=== PATIENT | male | born 1940 | race Caucasian/White ===

== ENCOUNTER 2018-08-22 09:42 | Inpatient (IN) | payer OTHER ==
[~2018-08-22] VITALS: Ht 165.1 cm; Wt 73.2 kg
[2018-08-22] MEDS ORDERED: ALBUTEROL 0.083% (NEB) 2.5 MG/3 ML AMP NEB STA (09:56)
[2018-08-22] MEDS ORDERED: IPRATROPIUM (NEB) 0.5 MG/2.5 ML AMP NEB STA (09:56)
[2018-08-22] MEDS ORDERED: GLUCAGON 1 MG INJ IV STA (10:01)
--- NOTE | 2018-08-22 10:35 | ERD ---
ER Documentation Chief Complaint Chief Complaint PtVandana LOPEZ RA with c/o dizziness. Denies chest pain HPI This is a 78-year-old male who presents to the emergency department brought in by EMS after he developed a sudden onset of dizziness about an hour prior to arrival. The patient indicated he awoke this morning and taken his prescribed medication which is 50 mg of metoprolol. Roughly 30 minutes after he felt very lightheaded and dizzy. He states he believes he took his normal dose. He also takes hydrochlorothiazide benazepril amlodipine metformin and finasteride. The patient denied any chest pain. He denied a headache. He denied any changes in vision. He states he felt lightheaded and dizzy and felt as though he was going to pass out but did not have a complete transient loss of consciousness. EMS arrived and indicated that the patient was bradycardic. His primary care physician is Dr. Feldman. ROS All systems reviewed and are negative except as per history of present illness. Medications Home Meds Reported Medications Finasteride* (Finasteride*) 5 Mg Tablet, 5 MG PO DAILY, TAB 08/22/18 Metformin Hcl* (Metformin Hcl*) 1,000 Mg Tablet, 1000 MG PO WITH BREAKFAST, #30 TAB 08/22/18 Amlodipine Besylate* (Amlodipine Besylate*) 10 Mg Tablet, 10 MG PO DAILY, #30 TAB 08/22/18 Benazepril Hcl* (Benazepril Hcl*) 40 Mg Tablet, 40 MG PO DAILY, #30 TAB 08/22/18 Clopidogrel Bisulfate* (Clopidogrel Bisulfate*) 75 Mg Tablet, 75 MG PO DAILY, #30 TAB 08/22/18 Hydrochlorothiazide* (Hydrochlorothiazide*) 12.5 Mg Tablet, 12.5 MG PO DAILY, #30 TAB 08/22/18 Metoprolol Tartrate* (Lopressor*) 50 Mg Tab, 50 MG PO BID, #60 TAB 08/22/18 Allergies Allergies: Coded Allergies: No Known Allergy (Unverified , 08/22/18) PMhx/Soc Hx Neurological Disorder: No Hx Respiratory Disorders: No Hx Cardiac Disorders: Yes (HTN) Hx Psychiatric Problems: No Hx Miscellaneous Medical Probl: Yes (BPH) Hx Alcohol Use: No Hx Substance Use: No Hx Tobacco Use: No Smoking Status: Never smoker Physical Exam Vitals Vital Signs Date Temp Pulse Resp B/P (MAP) Pulse Ox O2 O2 Flow FiO2 Time Delivery Rate 08/22/18 51 18 181/76 100 Room Air 12:44 (111) 08/22/18 53 18 206/71 100 Room Air 11:57 (116) 08/22/18 43 18 100 21 10:14 08/22/18 98.2 45 18 200/68 98 09:56 (112) Physical Exam Constitutional:Well-developed. Well-nourished. HEENT:Normocephalic. Atraumatic.Pupils were equal round reactive to light. Moist mucous membranes.No tonsillar exudates. Neck: No nuchal rigidity. No lymphadenopathy. No posterior cervical spine tenderness or step-offs. Respiratory: Not using accessory muscles of respiration.Lungs were clear to auscultation bilaterally. No rhonchi. No rales. No wheezing. Cardiovascular: Bradycardic.No murmurs. No rubs were appreciated.S1, S2 normal. Distal pulses are palpable 2+ bilaterally. GI: Abdomen was soft. Nontender. Non Distended. No pulsatile abdominal masses or bruits. No rebound. No guarding. Bowel sounds were present and normal. Muscle skeletal: Full range of motion of both the upper and lower extremities bilaterally.Normal muscle tone.No assymetrical calf tenderness or swelling. Skin: No petechia, no purpura. No lesions on the palms or the soles of the feet. No maculopapular rash. NEURO: Patient was alert, awake, orientated x3.No facial droop. Gait observed and normal with no ataxia.Speech had regular rate and rhythm. No focal neurological deficits. Result Diagram: 08/22/18 1002 08/22/18 1002 Results 24 hrs Laboratory Tests Test 08/22/18 10:02 08/22/18 10:42 08/22/18 11:27 White Blood Count 8.8 10^3/ul Red Blood Count 4.02 10^6/ul Hemoglobin 12.2 g/dl Hematocrit 36.2 % Mean Corpuscular Volume 90.0 fl Mean Corpuscular Hemoglobin 30.3 pg Mean Corpuscular 33.7 g/dl Hemoglobin Concent Red Cell Distribution Width 13.6 % Platelet Count 179 10^3/UL Mean Platelet Volume 10.7 fl Immature Granulocytes % 0.600 % Neutrophils % 63.3 % Lymphocytes % 27.0 % Monocytes % 7.7 % Eosinophils % 0.9 % Basophils % 0.5 % Nucleated Red Blood Cells % 0.0 /100WBC Immature Granulocytes # 0.050 10^3/ul Neutrophils # 5.6 10^3/ul Lymphocytes # 2.4 10^3/ul Monocytes # 0.7 10^3/ul Eosinophils # 0.1 10^3/ul Basophils # 0.0 10^3/ul Nucleated Red Blood Cells # 0.0 10^3/ul Prothrombin Time 13.2 Sec Prothrombin Time Ratio 1.0 INR International Normalized Ratio 0.99 Activated Partial Thromboplast 31.9 Sec Time Sodium Level 142 mmol/L Potassium Level 3.5 mmol/L Chloride Level 101 mmol/L Carbon Dioxide Level 28 mmol/L Anion Gap 13 Blood Urea Nitrogen 14 mg/dl Creatinine 1.05 mg/dl Est Glomerular Filtrat Rate mL/min mL/min Glucose Level 188 mg/dl Calcium Level 8.3 mg/dl Total Bilirubin 0.2 mg/dl Direct Bilirubin 0.00 mg/dl Indirect Bilirubin 0.2 mg/dl Aspartate Amino Transf (AST/SGOT) 15 IU/L Alanine 14 IU/L Aminotransferase (ALT/SGPT) Alkaline Phosphatase 51 IU/L Creatine Kinase 22 IU/L Creatine Kinase Index 2.1 Creatinine Kinase MB (Mass) 0.47 ng/ml Troponin I 0.013 ng/ml B-Type Natriuretic Peptide 1260 PG/ML Total Protein 6.2 g/dl Albumin 3.3 g/dl Globulin 2.90 g/dl Albumin/Globulin Ratio 1.13 Lipase 26 U/L Bedside Glucose 178 mg/dL 182 mg/dL Current Medications Medications Dose Sig/Renetta Start Time Status Last (Trade) Ordered Route PRN Stop Time Admin Dose Reason Admin Albuterol 5 mg ONCE STAT 08/22/18 DC 08/22/18 (Proventil NEB 09:56 10:14 0.083% (Neb)) 08/22/18 09:59 Ipratropium 0.5 mg ONCE STAT 08/22/18 DC 08/22/18 [place] NEB 09:56 10:14 (Atrovent 08/22/18 09:59 0.02% (Neb)) Glucagon 5 mg ONCE STAT 08/22/18 DC 08/22/18 (Glucagen) IV 10:01 11:11 08/22/18 10:03 Ondansetron 8 mg ONCE STAT 08/22/18 DC 08/22/18 HCl (Zofran IV 10:58 11:04 Inj) 08/22/18 10:59 Nicardipine 30 mg STK-MED 08/22/18 DC HCl ONCE .ROUTE 11:34 (Cardene) 08/22/18 11:35 Nicardipine 30 mg ONCE ONCE 08/22/18 DC 08/22/18 HCl PO 12:00 11:50 (Cardene) 08/22/18 12:01 Procedures/[facility] [place] This patient was seen and evaluated by myself. The patient presented to the emergency department complaining of dizziness. My differential diagnosis included but was not limited to hypovolemia, myocardial infarction, pulmonary embolism, hypoglycemia, hypoxia, anemia, vasovagal episode, hypothyroidism, anxiety, peripheral or central vertigo. The patient was placed on a bus monitor, continuous pulse oximetry and IV access established by nursing staff. Patient was given a liter bolus of 0.9 normal saline. The patient was now complaining of mild dyspnea and on physical exam had a very slight wheeze in the left lower lung base. Given that this was new onset wheezing I did feel is necessary to obtain a chest radiograph. The patient received nebulizer treatment of albuterol and Atrovent. Chest radiograph reviewed by myself showed cardiomegaly but no pulmonary vascular congestion. The patient had no leukocytosis or signs of infectious process such as sepsis that could be creating the patient's bradycardia. 12 Lead EKG tracing ordered and reviewed by myself showed: Sinus bradycardia 47 bpm and no arrhythmia. W[place] interval normal. QRS duration normal. No ST segment elevation No ST segment depression. No changes consistent with acute ischemia. Given that the patient was still symptomatic with pacer pads placed onto the patient and ACLS protocol followed, I did administer a bolus of 5 mg intravenously over 1 minute of glucagon to rule out the potential beta-collette toxicity. The patient was also given Zofran prophylactically. The patient had significant improvement of his bradycardia his heart rate is now 62. Given that the patient was still complaining of dizziness I do feel is necessary to obtain a CT scan of the patient's head. There is no signs of intercerebral hemorrhage mass-effect or midline shift. I did feel that the patient was stable for transfer. I spoke with Dr. [facility]av[facility] who gave authorization to admit to the panel physician for observation. Dr. Merrill will be the admitting physician Departure Diagnosis: Primary Impression: Dizziness Additional Impression: Symptomatic bradycardia Condition: Serious GEORGI COWAN MD Aug 22, 2018 10:35
[2018-08-22] MEDS ORDERED: ONDANSETRON 4 MG INJ IV STA (10:58)
[2018-08-22] MEDS ORDERED: METO-429 PO (11:05)
[2018-08-22] MEDS ORDERED: HYDR12.58 PO (11:06)
[2018-08-22] MEDS ORDERED: CLOP75TA19 PO (11:06)
[2018-08-22] MEDS ORDERED: BENA40TA56 PO (11:06)
[2018-08-22] MEDS ORDERED: AMLO-147 PO (11:06)
[2018-08-22] MEDS ORDERED: METF100010 PO (11:07)
[2018-08-22] MEDS ORDERED: FINA5TAB4 PO (11:07)
[2018-08-22] MEDS ORDERED: NICARDipine HCL 30 MG CAPSULE ONE (11:34)
[2018-08-22] MEDS ORDERED: NICARDipine HCL 30 MG CAPSULE PO ONE (12:00)
[2018-08-22] MEDS ORDERED: ACETAMINOPHEN 325 MG TAB PO PRN ×2 (14:30→15:30)
[2018-08-22] MEDS ORDERED: ONDANSETRON 4 MG INJ IV PRN (14:30)
[2018-08-22] MEDS ORDERED: NACL 0.9% 3 ML SYG IV SCH (15:30)
--- NOTE | 2018-08-22 15:58 | HP ---
Date/Time of Note Date/Time of Note DATE: 08/22/18 TIME: 15:38 Assessment/Plan VTE Prophylaxis SCD applied (from Nsg): Yes Pharmacological prophylaxis: NA/contraindicated Pharm contraindication: low risk/ambulating Lines/Catheters IV Catheter Type (from Nrsg): Saline Lock Assessment/Plan Assessment/Plan 78 yo man history of CAD and HTN presents with symptomatic bradycardia and possible neuro signs #Slurred speech #Dysphagia #Syncope - My neuro exam was benign with no focal findings. Hoarseness is subjective per patient's history. Also patient is outside the 4.5 hour window, so no code stroke. - CT head unremarkable with no mass, shift, bleed. - Will check MRI brain. - PT, OT, ST #Bradycardia - Chilo to 40s with dizziness and weakness on standing. - No significant adrienne block seen on EKG. - On CCB and BB at home; may have accidentally overdosed. There was some response to glucagon. - For now will hold all AV adrienen blockers. - Will consult cardiology. #HTN - Holding AVN blockers. - Benazepril, HCTZ and prn hydralazine for BP control, although will wait until MRI to see if permissive HTN may be needed. #CAD - Continue home plavix #DM2 - Hold home metformin - Insulin sliding scale. DVT: SCDs GI: None Result Diagram: 08/22/18 1002 08/22/18 1002 Results 24hrs HPI/ROS Admit Date/Time Admit Date/Time Aug 22, 2018 Hx of Present Illness Mr. Garcia is a 78 yo man BIBA from home for syncope, dizziness. He was in his usual state of health until last night, when he got up to go to the bathroom and had what sounds like a syncopal episode. Upon walking back to bed he found himself facedown on the floor. Does not remember having dizziness, palpitations prior. There was loss of consciousness. This morning, upon waking up he took his usual medications as scheduled. He reports there has been no change to the dose of his meds and no new meds in past few weeks. Soon after, he noticed that standing caused severe dizziness and whole body weakness. His roommate told him that his voice sounded slurred as well. The patient believes he did have some trouble swallowing food as well. During this time he had no chest pain, pressure, or palpitations. He does not follow a manager diversity regularly. Upon arrival in the ED he was found to be bradycardic to 40s and hypertensive to 200/88. He was given glucagon for suspected beta collette overdose which seems to have improved rate to 50s; but then given nicardipene which dropped rate to 40s again. On my exam the patient reports the dizziness is slightly improved. ROS He does report weight loss over past several weeks. Pants are now very loose on him. Otherwise denies recent fevers, chills, night sweats, headache, blurriness or double vision recently, cough, dysphagia, chest pain/pressure/palpitations, nausea, vomiting, abdominal pain, diarrhea, constipation, hematuria, dysuria. PMH/Family/Social Past Medical History CAD s/p stent in 2009 Medications Current Medications Ondansetron HCl (Zofran Inj) 4 mg ER BRIDGE PRN IV NAUSEA AND/OR VOMITING; Start 08/22/18 at 14:30; Stop 08/23/18 at 14:29 Acetaminophen (Tylenol Tab) 650 mg ER BRIDGE PRN PO MILD PAIN(1-3)OR ELEVATED TEMP; Start 08/22/18 at 14:30; Stop 08/23/18 at 14:29 IV Flush (NS 3 ml) 3 ml PER PROTOCOL IV ; Start 08/22/18 at 15:30; Status UNV Acetaminophen (Tylenol Tab) 650 mg Q6H PRN PO PAIN LEVEL 1-3 OR FEVER; Start 08/22/18 at 15:30; Status UNV Benazepril HCl (Lotensin) 40 mg DAILY PO ; Start 08/23/18 at 09:00; Status UNV Clopidogrel Bisulfate (plaVIX) 75 mg DAILY PO ; Start 08/23/18 at 09:00; Status UNV Hydrochlorothiazide (Hydrochlorothiazide) 12.5 mg DAILY PO ; Start 08/23/18 at 09:00; Status UNV Coded Allergies: No Known Allergy (Unverified , 08/22/18) Past Surgical History Laparotomy for ruptured appendicitis 5-6 years ago. Family History Significant Family History: no pertinent family hx Social History Lives in subsidized housing with roommate. Alcohol Use: none Smoking Status: Never smoker Drug Use: none Exam/Review of Systems Vital Signs Vitals Vital Signs Date Temp Pulse Resp B/P (MAP) Pulse Ox O2 O2 Flow FiO2 Time Delivery Rate 08/22/18 50 18 186/76 98 Room Air 14:39 (112) 08/22/18 21 10:14 08/22/18 98.2 09:56 Exam Exam Gen: Elderly man well appearing in no acute distress. Eyes: PERRL, no icterus. Neuro: No apparent facial droop. Brows elevate equally, smile and grimace symmetrical. There is subtle voice hoarseness but difficult to tell without known baseline. Tongue midline. Sensation intact throughout. Hard of hearing bilaterally. CN2-12 are otherwise intact. HEENT: Clear oropharynx, slightly dry mucous membranes, Neck: No JVD, no lymphadenopathy Card: Chilo, regular rate, no murmurs Pulm: Clear to auscultation bilaterally Abd: Overweight, soft, not significantly distended, nontympanic, large well healed midline lap scar. Ext: No cyanosis/clubbing/edema. RICHARDSON NEW MD Aug 22, 2018 15:48
[2018-08-22] MEDS ORDERED: GLUCAGON 1 MG INJ IM PRN (16:30)
[2018-08-22] MEDS ORDERED: GLUCOSE GEL 15 GRAM TUBE PO PRN ×2 (16:30)
[2018-08-22] MEDS ORDERED: GLUCOSE GEL 15 GRAM TUBE BUCCAL PRN (16:30)
[2018-08-22] MEDS ORDERED: DEXTROSE 50% 50 ML SYRINGE IV PRN ×2 (16:30)
[2018-08-22 17:03] VITALS: Ht 165.1 cm; Wt 73.2 kg
[2018-08-22 17:07] VITALS: PULSE 45
[2018-08-22 17:38] VITALS: PULSE 35
[2018-08-22] MEDS: INSULIN ASPART [NOVOLOG] 3 ML PEN SC SCH ×2 (18:00→21:00)
[2018-08-22 19:36] VITALS: BP 178/77; PULSE 48; RESP 18
[2018-08-22 20:00] VITALS: PULSE 54
[2018-08-22] MEDS ORDERED: hydrALAzine 20 MG INJ IV PRN (20:30)
[2018-08-23] VITALS (13 sets, daily range): BP systolic 146–193; BP diastolic 54–92; PULSE 52–73; RESP 16–20
[2018-08-23] MEDS: ACCU-CHEK XX SCH (02:00)
[2018-08-23] MEDS: INSULIN ASPART [NOVOLOG] 3 ML PEN SC SCH ×4 (07:57→21:00)
[2018-08-23] MEDS: CLOPIDOGREL 75 MG TAB PO SCH (08:49)
[2018-08-23] MEDS: BENAZEPRIL 40 MG TAB PO SCH (08:49)
[2018-08-23] MEDS ORDERED: HYDROCHLOROTHIAZIDE 12.5 MG CAP PO SCH (09:00)
--- NOTE | 2018-08-23 12:42 | CONS ---
Date/Time of Note Date/Time of Note DATE: 08/23/18 TIME: 12:38 Assessment/Plan Assessment/Plan Assessment/Plan Sinus bradycardia, improved Hypertension ?CAD -Patient presents with symptoms of lightheadedness and dizziness with standing up. Heart rate initially was in the 40s. Patient was on metoprolol, this was stopped and heart rates have improved. No significant arrhythmia seen on telemetry. Patient denies any history of CAD but based on H&P, this was documented. Patient is on metoprolol for unclear etiology, with that said, given bradycardia, would not restart the current time. Echocardiogram pending. Otherwise if no significant arrhythmias and if echocardiogram within normal limits and the patient's symptoms continue to improve, DC planning the next 24 hours. Result Diagram: 08/23/18 0505 08/23/18 0505 Results 24hrs Laboratory Tests Test 08/22/18 16:20 08/22/18 17:34 08/22/18 21:06 08/23/18 05:05 Troponin I < 0.012 0.021 Bedside Glucose 148 182 White Blood Count 8.4 Red Blood Count 4.13 L Hemoglobin 12.5 L Hematocrit 37.2 L Mean Corpuscular 90.1 Volume Mean Corpuscular 30.3 Hemoglobin Mean Corpuscular 33.6 Hemoglobin Concent Red Cell 14.0 Distribution Width Platelet Count 186 Mean Platelet Volume 11.2 H Immature 0.600 H Granulocytes % Neutrophils % 65.3 Lymphocytes % 24.7 Monocytes % 7.8 Eosinophils % 1.1 Basophils % 0.5 Nucleated Red Blood 0.0 Cells % Immature 0.050 H Granulocytes # Neutrophils # 5.5 Lymphocytes # 2.1 Monocytes # 0.7 Eosinophils # 0.1 Basophils # 0.0 Nucleated Red Blood 0.0 Cells # Sodium Level 145 H Potassium Level 3.8 Chloride Level 106 Carbon Dioxide Level 31 Anion Gap 8 Blood Urea Nitrogen 15 Creatinine 1.06 Est Glomerular Filtrat Rate mL/min Glucose Level 119 # Calcium Level 8.7 Phosphorus Level 4.6 Magnesium Level 2.2 Total Bilirubin 0.2 Direct Bilirubin 0.00 Indirect Bilirubin 0.2 Aspartate Amino 12 L Transf (AST/SGOT) Alanine 16 Aminotransferase (AL T/SGPT) Alkaline Phosphatase 49 Total Protein 5.7 L Albumin 3.0 L Globulin 2.70 Albumin/Globulin 1.11 Ratio Test 08/23/18 05:06 08/23/18 07:56 08/23/18 11:52 Hemoglobin A1c 7.8 H Bedside Glucose 113 191 Consultation Date/Type/Reason Admit Date/Time Aug 22, 2018 Type of Consult cv Reason for Consultation Bradycardia Hx of Present Illness This is a 78-year-old male with past medical history of hypertension who presents with dizziness and lightheaded and weak for the past few days. Patient states this is coming and going but worse over the past few days. Denies any chest pain, palpitations or shortness of breath. He denies exertional chest pain or shortness of breath. He does ambulate on his own without a walker or cane usually. He does feel better since his admission. His episodes of dizziness and lightheadedness are usually with standing up. 12 point review of systems was performed with all pertinent positives and negatives mentioned above and all else is negative Past Medical History Medical History: hypertension Medications Current Medications Ondansetron HCl (Zofran Inj) 4 mg ER BRIDGE PRN IV NAUSEA AND/OR VOMITING; Start 08/22/18 at 14:30; Stop 08/23/18 at 14:29 IV Flush (NS 3 ml) 3 ml PER PROTOCOL IV ; Start 08/22/18 at 15:30 Acetaminophen (Tylenol Tab) 650 mg Q6H PRN PO PAIN LEVEL 1-3 OR FEVER; Start 08/22/18 at 15:30 Benazepril HCl (Lotensin) 40 mg DAILY PO Last administered on 08/23/18at 08:49; Admin Dose 40 MG; Start 08/23/18 at 09:00 Clopidogrel Bisulfate (plaVIX) 75 mg DAILY PO Last administered on 08/23/18at 08:49; Admin Dose 75 MG; Start 08/23/18 at 09:00 Hydrochlorothiazide (Hydrochlorothiazide) 12.5 mg DAILY PO Last administered on 08/23/18at 08:49; Admin Dose 12.5 MG; Start 08/23/18 at 09:00 Diagnostic Test (Pha) (Accu-Chek) 1 ea 02 XX ; Start 08/23/18 at 02:00 Insulin Aspart (Novolog Insulin Pen) NOVOLOG *MODERATE* ALGORITHM WITH MEALS BEDTIME SC Last administered on 08/23/18at 11:59; Admin Dose 4 UNIT; Start 08/22/18 at 18:00 Miscellaneous Information 1 ea NOTE XX ; Start 08/22/18 at 16:30 Glucose (Glutose) 15 gm Q15M PRN PO DECREASED GLUCOSE; Start 08/22/18 at 16:30 Glucose (Glutose) 22.5 gm Q15M PRN PO DECREASED GLUCOSE; Start 08/22/18 at 16:30 Dextrose (D50w Syringe) 25 ml Q15M PRN IV DECREASED GLUCOSE; Start 08/22/18 at 16:30 Dextrose (D50w Syringe) 50 ml Q15M PRN IV DECREASED GLUCOSE; Start 08/22/18 at 16:30 Glucagon (Glucagen) 1 mg Q15M PRN IM DECREASED GLUCOSE; Start 08/22/18 at 16:30 Glucose (Glutose) 15 gm Q15M PRN BUCCAL DECREASED GLUCOSE; Start 08/22/18 at 16:30 Hydralazine HCl (Apresoline) 10 mg Q4H PRN IV ELEVATED BLOOD PRESSURE Last administered on 08/22/18at 21:03; Admin Dose 10 MG; Start 08/22/18 at 20:30 Hydralazine HCl (Apresoline) 25 mg Q6H PRN PO SBP ABOVE 160; Start 08/23/18 at 08:30 Allergies: Coded Allergies: No Known Allergy (Unverified , 08/22/18) Past Surgical History Past Surgical Hx: appendectomy Family History Significant Family History: no pertinent family hx Social History Alcohol Use: none Smoking Status: Never smoker Drug Use: none Other Social History Lives at home Exam/Review of Systems Vital Signs Vitals Vital Signs Date Temp Pulse Resp B/P (MAP) Pulse Ox O2 O2 Flow FiO2 Time Delivery Rate 08/23/18 60 12:19 08/23/18 97.5 18 148/70 95 11:08 (96) 08/22/18 Room Air 16:26 08/22/18 21 10:14 Intake and Output 08/22/18 08/22/18 08/23/18 1515:00 23:00 07:00 IntakeIntake Total 650 ml OutputOutput Total 500 ml BalanceBalance 150 ml Exam Hard of hearing, no apparent distress, eating lunch Constitutional: alert, oriented Head: normocephalic Respiratory: clear to auscultation, normal air movement Cardiovascular: regular rate and rhythm, other (S1-S2 heard) Gastrointestinal: soft, non-tender, bowel sounds Extremities: other (No significant edema) Medications Medications Current Medications Ondansetron HCl (Zofran Inj) 4 mg ER BRIDGE PRN IV NAUSEA AND/OR VOMITING; Start 08/22/18 at 14:30; Stop 08/23/18 at 14:29 IV Flush (NS 3 ml) 3 ml PER PROTOCOL IV ; Start 08/22/18 at 15:30 Acetaminophen (Tylenol Tab) 650 mg Q6H PRN PO PAIN LEVEL 1-3 OR FEVER; Start 08/22/18 at 15:30 Benazepril HCl (Lotensin) 40 mg DAILY PO Last administered on 08/23/18at 08:49; Admin Dose 40 MG; Start 08/23/18 at 09:00 Clopidogrel Bisulfate (plaVIX) 75 mg DAILY PO Last administered on 08/23/18at 08:49; Admin Dose 75 MG; Start 08/23/18 at 09:00 Hydrochlorothiazide (Hydrochlorothiazide) 12.5 mg DAILY PO Last administered on 08/23/18at 08:49; Admin Dose 12.5 MG; Start 08/23/18 at 09:00 Diagnostic Test (Pha) (Accu-Chek) 1 ea 02 XX ; Start 08/23/18 at 02:00 Insulin Aspart (Novolog Insulin Pen) NOVOLOG *MODERATE* ALGORITHM WITH MEALS BEDTIME SC Last administered on 08/23/18at 11:59; Admin Dose 4 UNIT; Start 08/22/18 at 18:00 Miscellaneous Information 1 ea NOTE XX ; Start 08/22/18 at 16:30 Glucose (Glutose) 15 gm Q15M PRN PO DECREASED GLUCOSE; Start 08/22/18 at 16:30 Glucose (Glutose) 22.5 gm Q15M PRN PO DECREASED GLUCOSE; Start 08/22/18 at 16:30 Dextrose (D50w Syringe) 25 ml Q15M PRN IV DECREASED GLUCOSE; Start 08/22/18 at 16:30 Dextrose (D50w Syringe) 50 ml Q15M PRN IV DECREASED GLUCOSE; Start 08/22/18 at 16:30 Glucagon (Glucagen) 1 mg Q15M PRN IM DECREASED GLUCOSE; Start 08/22/18 at 16:30 Glucose (Glutose) 15 gm Q15M PRN BUCCAL DECREASED GLUCOSE; Start 08/22/18 at 16:30 Hydralazine HCl (Apresoline) 10 mg Q4H PRN IV ELEVATED BLOOD PRESSURE Last administered on 08/22/18at 21:03; Admin Dose 10 MG; Start 08/22/18 at 20:30 Hydralazine HCl (Apresoline) 25 mg Q6H PRN PO SBP ABOVE 160; Start 08/23/18 at 08:30 Imaging Imaging ECG with sinus bradycardia, QRS duration, no significant STT wave abnormalities Abdulkadir Recinos DO Aug 23, 2018 12:42
--- NOTE | 2018-08-23 15:11 | PN ---
Date/Time of Note Date/Time of Note DATE: 08/23/18 TIME: 15:07 Assessment/Plan VTE Prophylaxis Risk score (from Ns)>0 risk: 3 SCD applied (from Ns): Yes Pharmacological prophylaxis: NA/contraindicated Pharm contraindication: low risk/ambulating Lines/Catheters IV Catheter Type (from [facility], [place]): Saline Lock Assessment/Plan Assessment/Plan 78 yo man history of CAD and HTN presents with symptomatic bradycardia and possible neuro signs #Slurred speech #Dysphagia #Syncope - Had syncopal episode where he fell forward and faceplanted, concerning for primary cardiac or neuro etiology. - My neuro exam was benign with no focal findings. Hoarseness is subjective per patient's history. Also patient is outside the 4.5 hour window, so no code stroke. - CT head unremarkable with no mass, shift, bleed. - Pending MRI brain. - PT, OT, ST #Bradycardia - Chilo to 40s with dizziness and weakness on standing. - No significant adrienne block seen on EKG. - On CCB and BB at home; may have accidentally overdosed. There was some response to glucagon. - For now will hold all AV adrienne blockers. - Appreciate Dr. Recinos's help. #HTN - Holding AVN blockers. - Benazepril, HCTZ and prn hydralazine for BP control #CAD - Continue home plavix #DM2 - Hold home metformin - Insulin sliding scale. DVT: SCDs GI: None Result Diagram: 08/23/18 0505 08/23/18 0505 Results 24hrs Laboratory Tests Test 08/22/18 16:20 08/22/18 17:34 08/22/18 21:06 08/23/18 05:05 Troponin I < 0.012 0.021 Bedside Glucose 148 182 White Blood Count 8.4 Red Blood Count 4.13 L Hemoglobin 12.5 L Hematocrit 37.2 L Mean Corpuscular 90.1 Volume Mean Corpuscular 30.3 Hemoglobin Mean Corpuscular 33.6 Hemoglobin Concent Red Cell 14.0 Distribution Width Platelet Count 186 Mean Platelet Volume 11.2 H Immature 0.600 H Granulocytes % Neutrophils % 65.3 Lymphocytes % 24.7 Monocytes % 7.8 Eosinophils % 1.1 Basophils % 0.5 Nucleated Red Blood 0.0 Cells % Immature 0.050 H Granulocytes # Neutrophils # 5.5 Lymphocytes # 2.1 Monocytes # 0.7 Eosinophils # 0.1 Basophils # 0.0 Nucleated Red Blood 0.0 Cells # Sodium Level 145 H Potassium Level 3.8 Chloride Level 106 Carbon Dioxide Level 31 Anion Gap 8 Blood Urea Nitrogen 15 Creatinine 1.06 Est Glomerular Filtrat Rate mL/min Glucose Level 119 # Calcium Level 8.7 Phosphorus Level 4.6 Magnesium Level 2.2 Total Bilirubin 0.2 Direct Bilirubin 0.00 Indirect Bilirubin 0.2 Aspartate Amino 12 L Transf (AST/SGOT) Alanine 16 Aminotransferase (AL T/SGPT) Alkaline Phosphatase 49 Total Protein 5.7 L Albumin 3.0 L Globulin 2.70 Albumin/Globulin 1.11 Ratio Test 08/23/18 05:06 08/23/18 07:56 08/23/18 11:52 Hemoglobin A1c 7.8 H Bedside Glucose 113 191 Subjective 24 Hr Interval Summary Free Text/Dictation No acute overnight events. Patient is awake, alert, oriented; in no acute distress. He does seem to have poor recollection of events and history told to me yesterday. Apparently stood up once and walked to restroom with no dizziness. Exam/Review of Systems Vital Signs Vitals Vital Signs Date Temp Pulse Resp B/P (MAP) Pulse Ox O2 O2 Flow FiO2 Time Delivery Rate 08/23/18 60 12:19 08/23/18 97.5 18 148/70 95 11:08 (96) 08/22/18 Room Air 16:26 08/22/18 21 10:14 Intake and Output 08/22/18 08/22/18 08/23/18 1515:00 23:00 07:00 IntakeIntake Total 650 ml OutputOutput Total 500 ml BalanceBalance 150 ml Exam Gen: Elderly man well appearing in no acute distress. Eyes: PERRL, no icterus. Neuro: No apparent facial droop. Brows elevate equally, smile and grimace symmetrical. No voice hoarseness. Tongue midline. Sensation intact throughout. Hard of hearing bilaterally. CN2-12 are otherwise intact. HEENT: Clear oropharynx, slightly dry mucous membranes. R eyebrow well-healed abrasion. Neck: No JVD, no lymphadenopathy Card: Chilo, regular rate, no murmurs Pulm: Clear to auscultation bilaterally Abd: Overweight, soft, not significantly distended, nontympanic, large well healed midline lap scar. Ext: No cyanosis/clubbing/edema. Medications Medications Current Medications IV Flush (NS 3 ml) 3 ml PER PROTOCOL IV ; Start 08/22/18 at 15:30 Acetaminophen (Tylenol Tab) 650 mg Q6H PRN PO PAIN LEVEL 1-3 OR FEVER; Start 08/22/18 at 15:30 Benazepril HCl (Lotensin) 40 mg DAILY PO Last administered on 08/23/18at 08:49; Admin Dose 40 MG; Start 08/23/18 at 09:00 Clopidogrel Bisulfate (plaVIX) 75 mg DAILY PO Last administered on 08/23/18at 08:49; Admin Dose 75 MG; Start 08/23/18 at 09:00 Hydrochlorothiazide (Hydrochlorothiazide) 12.5 mg DAILY PO Last administered on 08/23/18at 08:49; Admin Dose 12.5 MG; Start 08/23/18 at 09:00 Diagnostic Test (Pha) (Accu-Chek) 1 ea 02 XX ; Start 08/23/18 at 02:00 Insulin Aspart (Novolog Insulin Pen) NOVOLOG *MODERATE* ALGORITHM WITH MEALS BEDTIME SC Last administered on 08/23/18at 11:59; Admin Dose 4 UNIT; Start 08/22/18 at 18:00 Miscellaneous Information 1 ea NOTE XX ; Start 08/22/18 at 16:30 Glucose (Glutose) 15 gm Q15M PRN PO DECREASED GLUCOSE; Start 08/22/18 at 16:30 Glucose (Glutose) 22.5 gm Q15M PRN PO DECREASED GLUCOSE; Start 08/22/18 at 16:30 Dextrose (D50w Syringe) 25 ml Q15M PRN IV DECREASED GLUCOSE; Start 08/22/18 at 16:30 Dextrose (D50w Syringe) 50 ml Q15M PRN IV DECREASED GLUCOSE; Start 08/22/18 at 16:30 Glucagon (Glucagen) 1 mg Q15M PRN IM DECREASED GLUCOSE; Start 08/22/18 at 16:30 Glucose (Glutose) 15 gm Q15M PRN BUCCAL DECREASED GLUCOSE; Start 08/22/18 at 16:30 Hydralazine HCl (Apresoline) 10 mg Q4H PRN IV ELEVATED BLOOD PRESSURE Last administered on 08/22/18at 21:03; Admin Dose 10 MG; Start 08/22/18 at 20:30 Hydralazine HCl (Apresoline) 25 mg Q6H PRN PO SBP ABOVE 160; Start 08/23/18 at 08:30 RICHARDSON NEW MD Aug 23, 2018 15:11
[2018-08-24] VITALS (13 sets, daily range): BP systolic 139–230; BP diastolic 63–99; PULSE 52–164; RESP 18–19
[2018-08-24] MEDS: ACCU-CHEK XX SCH (01:49)
[2018-08-24] MEDS: INSULIN ASPART [NOVOLOG] 3 ML PEN SC SCH ×4 (08:00→20:43)
[2018-08-24] MEDS: CLOPIDOGREL 75 MG TAB PO SCH (08:20)
[2018-08-24] MEDS: BENAZEPRIL 40 MG TAB PO SCH (08:21)
[2018-08-24] MEDS: HYDROCHLOROTHIAZIDE 12.5 MG CAP PO SCH (08:21)
--- NOTE | 2018-08-24 10:28 | PN ---
Date/Time of Note Date/Time of Note DATE: 08/24/18 TIME: 10:14 Assessment/Plan VTE Prophylaxis Risk score (from Nsg)>0 risk: 3 SCD applied (from Nsg): Yes Pharmacological prophylaxis: other Lines/Catheters IV Catheter Type (from Nrsg): Saline Lock Urinary Cath still in place: No Assessment/Plan Hospital Course S: Patient asking when he can go home, denies chest pain. Waiting for MRI of the brain to be performed later today. O: VS - see below PE: Gen: Elderly man well appearing in no acute distress. Eyes: PERRL, no icterus. Neuro: No apparent facial droop, no focal deficits, pt is hard of hearing bilaterally. CN2-12 are otherwise intact. HEENT: Clear oropharynx, slightly dry mucous membranes. R eyebrow well-healed abrasion. Neck: No JVD, no lymphadenopathy Card: Chilo, regular rate, no murmurs Pulm: Clear to auscultation bilaterally Abd: Overweight, soft, not significantly distended, nontympanic, large well healed midline lap scar. Ext: No cyanosis/clubbing/justin Assessment/Plan: 78 yo man history of CAD and HTN presents with symptomatic bradycardia and possible neuro signs. #Slurred speech + Dysphagia + Syncope- Had syncopal episode where he fell forward and faceplanted, concerning for primary cardiac or neuro etiology. Neuro exam was benign with no focal findings. Hoarseness is subjective per patient's history. On admission patient was outside the 4.5 hour window, so no code stroke- CT head unremarkable with no mass, shift, bleed. - Pending MRI brain-for today, follow-up results of this -For now continue in-house PT, OT, ST -needs front wheel walker and home health PT set up, will place case management order for this #Bradycardia- Chilo to 40s with dizziness and weakness on standing. Presently asymptomatic - No significant adrienne block seen on EKG- On CCB and BB at home; may have accidentally overdosed. There was some response to glucagon. - For now continue to hold all AV adrienne blockers. - Appreciate Dr. Recinos's help, follow-up recommendations #HTN -presently high normal-, again have been holding AVN blockers. -For now continue benazepril, HCTZ and prn hydralazine for BP control #CAD - Continue home plavix #DM2- Hold home metformin. Sugars stable. -Continue insulin sliding scale. DVT: SCDs Result Diagram: 08/23/18 0505 08/23/18 0505 Results 24hrs Laboratory Tests Test 08/23/18 11:52 08/23/18 15:55 08/23/18 17:07 08/23/18 21:42 Bedside Glucose 191 144 173 Free Thyroxine Index 1.64 Thyroxine (T4) 4.9 L Triiodothyronine 33.4 (T3) Uptake Test 08/24/18 08:18 Bedside Glucose 112 Exam/Review of Systems Vital Signs Vitals Vital Signs Date Temp Pulse Resp B/P (MAP) Pulse Ox O2 O2 Flow FiO2 Time Delivery Rate 08/24/18 59 09:12 08/24/18 98.2 18 175/77 96 07:26 (109) 08/22/18 Room Air 16:26 08/22/18 21 10:14 Intake and Output 08/23/18 08/23/18 08/24/18 1414:59 22:59 06:59 IntakeIntake Total 600 ml 520 ml BalanceBalance 600 ml 520 ml Medications Medications Current Medications IV Flush (NS 3 ml) 3 ml PER PROTOCOL IV ; Start 08/22/18 at 15:30 Acetaminophen (Tylenol Tab) 650 mg Q6H PRN PO PAIN LEVEL 1-3 OR FEVER; Start 08/22/18 at 15:30 Benazepril HCl (Lotensin) 40 mg DAILY PO Last administered on 08/24/18at 08:21; Admin Dose 40 MG; Start 08/23/18 at 09:00 Clopidogrel Bisulfate (plaVIX) 75 mg DAILY PO Last administered on 08/24/18at 08:20; Admin Dose 75 MG; Start 08/23/18 at 09:00 Diagnostic Test (Pha) (Accu-Chek) 1 ea 02 XX ; Start 08/23/18 at 02:00 Insulin Aspart (Novolog Insulin Pen) NOVOLOG *MODERATE* ALGORITHM WITH MEALS BEDTIME SC Last administered on 08/23/18at 17:12; Admin Dose 2 UNIT; Start 08/22/18 at 18:00 Miscellaneous Information 1 ea NOTE XX ; Start 08/22/18 at 16:30 Glucose (Glutose) 15 gm Q15M PRN PO DECREASED GLUCOSE; Start 08/22/18 at 16:30 Glucose (Glutose) 22.5 gm Q15M PRN PO DECREASED GLUCOSE; Start 08/22/18 at 16:30 Dextrose (D50w Syringe) 25 ml Q15M PRN IV DECREASED GLUCOSE; Start 08/22/18 at 16:30 Dextrose (D50w Syringe) 50 ml Q15M PRN IV DECREASED GLUCOSE; Start 08/22/18 at 16:30 Glucagon (Glucagen) 1 mg Q15M PRN IM DECREASED GLUCOSE; Start 08/22/18 at 16:30 Glucose (Glutose) 15 gm Q15M PRN BUCCAL DECREASED GLUCOSE; Start 08/22/18 at 16:30 Hydralazine HCl (Apresoline) 25 mg Q6H PRN PO SBP ABOVE 160; Start 08/23/18 at 08:30 Hydrochlorothiazide (Hydrochlorothiazide) 25 mg DAILY PO Last administered on 08/24/18at 08:21; Admin Dose 25 MG; Start 08/24/18 at 09:00 SUPA ELIZABETH Aug 24, 2018 10:27
[2018-08-24] MEDS ORDERED: hydrALAzine 20 MG INJ IV PRN (12:30)
--- NOTE | 2018-08-24 14:33 | RADRPT ---
Echocardiogram Report Patient Name: BALAJI OROZCO Gender: Male Date: 1940 Study Date: 24-Aug-2018 Orthopedic Podiatrist: TB Location: [id number] Ref. Physician: ABDULKADIR RECINOS Quality: Adequate Procedures: Transthoracic echocardiogram with complete 2D, M-Mode, and doppler examination. Indications: Bradycardia. 2D/M Mode Doppler Measurement Value Normal Ranges Measurement Value Normal Ranges LVIDd 2D 3.8 3.5 - 5.6 cm AV Mean Faheem 0.9 m/sec LVIDs 2D 2.4 2.1 - 4.1 cm AV Mean PG 4.0 mmHg LVPWd 2D 1.6 0.6 - 1.1 cm AV Peak Faheem 1.5 m/sec IVSd 2D 1.9 0.6 - 1.1 cm AV Peak PG 9.0 mmHg AoR Diam 2D 3.3 2.0 - 3.7 cm AV VTI 29.2 cm LA/Ao 2D 1 0 - 1 AI Peak PG 47.0 mmHg EF 2D 65.0 50.0 - 65.0 % AI Peak Faheem 3.4 m/sec LA Dimen 2D 3.0 2.3 - 4.0 cm AI PHT 767.0 msec IVC Diam 1.8 1.2 - 2.0 LVOT Mean Faheem 0.8 m/sec LVOT Mean PG 3.0 mmHg LVOT Peak Faheem 1.2 m/sec LVOT Peak PG 6.0 mmHg MV E Peak Faheem 0.6 m/sec MV A Peak Faheem 1.1 m/sec MV E/A 0.6 MV PHT 104.0 msec MV Decel Time 356 msec MV Decel Petroleum 2 MV E/A 0.6 MV PHT 104.0 msec MVA PHT 2.1 cm2 TAPSE 2.4 cm TR Peak Faheem 1.7 m/sec TR Peak PG 12.0 mmHg RVSP 15.0 mmHg RA Pressure 3.0 Findings Left Ventricle: Normal left ventricular systolic function. Normal left ventricular cavity size. Moderate left ventricular hypertrophy. Ejection fraction is visually estimated at 60 %. Tissue Doppler/Mitral Doppler indices are consistent with impaired relaxation (Stage I diastolic dysfunction). Right Ventricle: Normal right ventricular size. Normal right ventricular systolic function. Left Atrium: The left atrium is normal in size. Right Atrium: The right atrium is normal in size. Mitral Valve: Mild mitral annular calcification. Trace mitral regurgitation. Aortic Valve: Normal appearance of the aortic valve. No hemodynamically significant aortic stenosis by doppler. Mild aortic valve regurgitation. Tricuspid Valve: Normal appearance and function of the tricuspid valve with trace physiologic regurgitation. Estimated peak PA systolic pressure 15 mmHg. Pulmonic Valve: Normal pulmonic valve appearance. Pericardium: Normal pericardium with no significant pericardial effusion. Aorta: Normal aortic root. IVC: Normal size and normal respiratory collapse consistent with normal right atrial pressure. Conclusions Normal left ventricular systolic function. Normal left ventricular cavity size. Moderate left ventricular hypertrophy. Ejection fraction is visually estimated at 60 %. Tissue Doppler/Mitral Doppler indices are consistent with impaired relaxation (Stage I diastolic dysfunction). Normal right ventricular size. Normal right ventricular systolic function. The left atrium is normal in size. The right atrium is normal in size. Normal appearance of the aortic valve. No hemodynamically significant aortic stenosis by doppler. Mild aortic valve regurgitation. No significant valvular stenosis or regurgitation seen of remaining visualized valves. Normal pericardium with no significant pericardial effusion. Electronically Signed By: Abdulkadir Recinos 24-Aug-2018 14:32:38 -0800 Patient Name: BALAJI OROZCO Study Date: 24-Aug-2018 [id number]
--- NOTE | 2018-08-24 15:56 | CONS ---
Date/Time of Note Date/Time of Note DATE: 08/24/18 TIME: 15:53 Assessment/Plan Assessment/Plan Assessment/Plan Sinus bradycardia, improved Hypertension CAD Preserved ejection fraction -Heart rate trend overall improved off AV adrienne blocking agent. Blood pressure on the higher side, would start Norvasc and titrate as needed. No further dizziness or lightheadedness. No need for pacemaker at the current time. DC pl anning Result Diagram: 08/23/18 0505 08/23/18 0505 Results 24hrs Laboratory Tests Test 08/23/18 15:55 08/23/18 17:07 08/23/18 21:42 08/24/18 08:18 Free Thyroxine Index 1.64 Thyroxine (T4) 4.9 L Triiodothyronine 33.4 (T3) Uptake Bedside Glucose 144 173 112 Test 08/24/18 11:39 Bedside Glucose 194 Consultation Date/Type/Reason Admit Date/Time Aug 24, 2018 at 11:45 Initial Consult Date Type of Consult cv 24 HR Interval Summary Free Text/Dictation Denies chest pain, palpitations or shortness of breath or dizziness with standing Exam/Review of Systems Vital Signs Vitals Vital Signs Date Temp Pulse Resp B/P (MAP) Pulse Ox O2 O2 Flow FiO2 Time Delivery Rate 08/24/18 65 19 196/86 13:07 (122) 08/24/18 97.9 96 11:19 08/22/18 Room Air 16:26 08/22/18 21 10:14 Intake and Output 08/23/18 08/23/18 08/24/18 1515:00 23:00 07:00 IntakeIntake Total 600 ml 520 ml BalanceBalance 600 ml 520 ml Exam No apparent distress Constitutional: alert, oriented Head: normocephalic Respiratory: clear to auscultation, normal air movement Cardiovascular: regular rate and rhythm, other (S1-S2 heard) Gastrointestinal: soft, non-tender, bowel sounds Extremities: other (No edema) Medications Medications Current Medications IV Flush (NS 3 ml) 3 ml PER PROTOCOL IV ; Start 08/22/18 at 15:30 Acetaminophen (Tylenol Tab) 650 mg Q6H PRN PO PAIN LEVEL 1-3 OR FEVER; Start 08/22/18 at 15:30 Benazepril HCl (Lotensin) 40 mg DAILY PO Last administered on 08/24/18at 08:21; Admin Dose 40 MG; Start 08/23/18 at 09:00 Clopidogrel Bisulfate (plaVIX) 75 mg DAILY PO Last administered on 08/24/18at 08:20; Admin Dose 75 MG; Start 08/23/18 at 09:00 Diagnostic Test (Pha) (Accu-Chek) 1 ea 02 XX ; Start 08/23/18 at 02:00 Insulin Aspart (Novolog Insulin Pen) NOVOLOG *MODERATE* ALGORITHM WITH MEALS BEDTIME SC Last administered on 08/24/18at 11:59; Admin Dose 4 UNIT; Start 08/22/18 at 18:00 Miscellaneous Information 1 ea NOTE XX ; Start 08/22/18 at 16:30 Glucose (Glutose) 15 gm Q15M PRN PO DECREASED GLUCOSE; Start 08/22/18 at 16:30 Glucose (Glutose) 22.5 gm Q15M PRN PO DECREASED GLUCOSE; Start 08/22/18 at 16:30 Dextrose (D50w Syringe) 25 ml Q15M PRN IV DECREASED GLUCOSE; Start 08/22/18 at 16:30 Dextrose (D50w Syringe) 50 ml Q15M PRN IV DECREASED GLUCOSE; Start 08/22/18 at 16:30 Glucagon (Glucagen) 1 mg Q15M PRN IM DECREASED GLUCOSE; Start 08/22/18 at 16:30 Glucose (Glutose) 15 gm Q15M PRN BUCCAL DECREASED GLUCOSE; Start 08/22/18 at 16:30 Hydralazine HCl (Apresoline) 25 mg Q6H PRN PO SBP ABOVE 160 Last administered on 08/24/18at 11:32; Admin Dose 25 MG; Start 08/23/18 at 08:30 Hydrochlorothiazide (Hydrochlorothiazide) 25 mg DAILY PO Last administered on 08/24/18at 08:21; Admin Dose 25 MG; Start 08/24/18 at 09:00 Hydralazine HCl (Apresoline) 10 mg Q6H PRN IV ELEVATED BLOOD PRESSURE; Start 08/24/18 at 12:30 Amlodipine Besylate (Norvasc) 5 mg DAILY PO ; Start 08/24/18 at 16:00; Status Abdulkadir Khan DO Aug 24, 2018 15:56
[2018-08-24] MEDS: AMLODIPINE 5 MG TAB PO SCH (17:16)
[2018-08-24] MEDS: ENALAPRILAT 1.25 MG INJ IV PRN (19:06)
[2018-08-25] VITALS (11 sets, daily range): BP systolic 141–212; BP diastolic 66–93; PULSE 46–83; RESP 18–20
[2018-08-25] MEDS: ACCU-CHEK XX SCH (02:00)
[2018-08-25] MEDS: hydrALAzine 20 MG INJ IV PRN ×2 (06:21→15:36)
[2018-08-25] MEDS: INSULIN ASPART [NOVOLOG] 3 ML PEN SC SCH ×3 (08:00→17:24)
[2018-08-25] MEDS: AMLODIPINE 5 MG TAB PO SCH (08:05)
[2018-08-25] MEDS: CLOPIDOGREL 75 MG TAB PO SCH (08:05)
[2018-08-25] MEDS: HYDROCHLOROTHIAZIDE 12.5 MG CAP PO SCH (08:05)
[2018-08-25] MEDS: BENAZEPRIL 40 MG TAB PO SCH (08:09)
--- NOTE | 2018-08-25 10:29 | PDOCDIS ---
Discharge Instructions CONDITION [id number] Patient Condition: [id number] Stable HOME CARE INSTRUCTIONS: [id number] Diet Instructions: [id number] Low Fat /Cholesterol ACTIVITY: [id number] Activity Restrictions: [id number] Slowly Increase Activity Rest between Activity Avoid heavy lifting FOLLOW UP/APPOINTMENTS Follow-up Plan Please take your medications as prescribed. Please see your doctor in the clinic in the next 1 week. SUPA ELIZABETH. Aug 25, 2018 10:29
--- NOTE | 2018-08-25 10:34 | DS ---
Date/Time of Note Date/Time of Note DATE: 08/25/18 TIME: 10:29 Discharge Summary Admission/Discharge Info Admit Date/Time Aug 24, 2018 at 11:45 Discharge Date/Time Discharge Diagnosis #Slurred speech + Dysphagia + Syncope- Had syncopal episode where he fell for agustin and faceplanted, concerning for primary cardiac or neuro etiology. Neuro exam was benign with no focal findings. MRI brain negative for acute findings. #Bradycardia-resolved now. Chilo to 40s with dizziness and weakness on standing. Presently asymptomatic - No significant adrienne block seen on EKG- On CCB and BB at home; may have accidentally overdosed. #HTN -presently stable #CAD- Continue home plavix #DM2-A1c equals 7.8. Patient Condition: Stable Procedures A. Echocardiogram August 24 2018: Conclusions Normal left ventricular systolic function. Normal left ventricular cavity size. Moderate left ventricular hypertrophy. Ejection fraction is visually estimated at 60 %. Tissue Doppler/Mitral Doppler indices are consistent with impaired relaxation (Stage I diastolic dysfunction). Normal right ventricular size. Normal right ventricular systolic function. The left atrium is normal in size. The right atrium is normal in size. Normal appearance of the aortic valve. No hemodynamically significant aortic stenosis by doppler. Mild aortic valve regurgitation. No significant valvular stenosis or regurgitation seen of remaining visualized valves. Normal pericardium with no significant pericardial effusion. B. MRI brain: IMPRESSION: No evidence of diffusion signal abnormalities to suggest acute infarct, recent ischemia, or recent ictal focus. Nonspecific small scattered areas of T2 and FLAIR signal hyperintensity measuring a few millimeters are seen in the supratentorial white matter most commonly due to chronic mild microvascular ischemic changes. Differential considerations include sequelae of migraines; prior parenchymal injury from infectious or inflammatory/demyelinating process; vasculopathy. Hx of Present Illness 78 yo man BIBA from home for syncope, dizziness. He was in his usual state of health until last night, when he got up to go to the bathroom and had what sounds like a syncopal episode. Upon walking back to bed he found himself facedown on the floor. Does not remember having dizziness, palpitations prior. There was loss of consciousness. This morning, upon waking up he took his usual medications as scheduled. He reports there has been no change to the dose of his meds and no new meds in past few weeks. Soon after, he noticed that standing caused severe dizziness and whole body weakness. His roommate told him that his voice sounded slurred as well. The patient believes he did have some trouble swallowing food as well. During this time he had no chest pain, pressure, or palpitations. He does not follow a credit administration officer regularly. Upon arrival in the ED he was found to be bradycardic to 40s and hypertensive to 200/88. He was given glucagon for suspected beta collette overdose which seems to have improved rate to 50s; but then given nicardipene which dropped rate to 40s again. On my exam the patient reports the dizziness is slightly improved. Hospital Course So patient was admitted to telemetry floor. His heart rate was monitored as well. His AV adrienne blocking agents home medications were held. He was given some as needed hydralazine and enalapril along with p.o. HALINA inhibitor to help control his blood pressure which was elevated overall. Over the course of his hospital stay his slurred speech dysphasia and syncopal episode subsided. He worked with physical therapy team as well. He was able to ambulate with assistance, tolerated p.o. diet. His MRI brain was negative for any acute findings. After getting clearance from [employer] teams she will be discharged home today in improved condition as his heart rate has improved and his blood pressure stabilizes well. See below for full list of discharge medications. Home Meds Reported Medications Finasteride* (Finasteride*) 5 Mg Tablet, 5 MG PO DAILY, TAB 08/22/18 Metformin Hcl* (Metformin Hcl*) 1,000 Mg Tablet, 1000 MG PO WITH BREAKFAST, #30 TAB 08/22/18 Amlodipine Besylate* (Amlodipine Besylate*) 10 Mg Tablet, 10 MG PO DAILY, #30 TAB 08/22/18 Benazepril Hcl* (Benazepril Hcl*) 40 Mg Tablet, 40 MG PO DAILY, #30 TAB 08/22/18 Clopidogrel Bisulfate* (Clopidogrel Bisulfate*) 75 Mg Tablet, 75 MG PO DAILY, #30 TAB 08/22/18 Hydrochlorothiazide* (Hydrochlorothiazide*) 12.5 Mg Tablet, 12.5 MG PO DAILY, #30 TAB 08/22/18 Metoprolol Tartrate* (Lopressor*) 50 Mg Tab, 50 MG PO BID, #60 TAB 08/22/18 Follow-up Plan Please take your medications as prescribed. Please see your doctor in the clinic in the next 1 week. Primary Care Provider Not On Staff Doctor Time spent on discharge: > 30 minutes Pending Labs Laboratory Tests Test 08/24/18 11:39 08/24/18 17:19 08/24/18 20:38 08/25/18 02:59 Bedside 194 135 274 145 Glucose mg/dL (70-220) mg/dL (70-220) mg/dL (70-220) mg/dL (70-220) Test 08/25/18 07:49 Bedside 130 Glucose mg/dL (70-220) SUPA ELIZABETH Aug 25, 2018 10:34
[2018-08-25] MEDS ORDERED: AMLO-145 PO (10:35)
[2018-08-25] MEDS ORDERED: HYDR25TA6 PO (10:35)
[2018-08-25] MEDS: ENALAPRILAT 1.25 MG INJ IV PRN (15:38)
[2018-08-25] MEDS ORDERED: hydrALAzine 20 MG INJ IV ONE ×2 (16:30→17:30)
[2018-08-25] MEDS ORDERED: ENALAPRILAT 1.25 MG INJ IV ONE (16:30)
== END 2018-08-25 18:00 | disposition home health service (06) | DRG 310 ==
LOC: E/R 09:42 → 6WM 14:29 → OBSVTOIN 08-24 11:45
PROVIDERS: ADMIT Internal Medicine; ATTEND Hospitalist
DX: R00.1 Bradycardia, unspecified (principal); I25.10 Atherosclerotic heart disease of native coronary artery without angina pectoris; I10 Essential (primary) hypertension; R47.81 Slurred speech; E11.9 Type 2 diabetes mellitus without complications; R13.10 Dysphagia, unspecified
CPT/HCPCS: 70450; 70551; 71045; 80053; 82550; 82553; 82962; 83036; 83690; 83735; 83880; 84100; 84436; 84479; 84484; 85025; 85610; 85730; 90686; 92610; 93005; 93306; 94664; 96374; 96375; 97162; 97165; G0378; J0360; J1610; J1815; J2405